=== PATIENT | male | born 1935 | race Caucasian/White ===

== ENCOUNTER 2017-08-31 16:09 | Emergency (ER) | payer MEDICARE, OTHER ==
[~2017-08-31] VITALS: Ht 189.2 cm; Wt 119.5 kg
[~2017-08-31 16:09] MED LIST: ASPI81 PO; CALA120T PO; CARB0.5D16 OU; CYAN1000P IM; GLYB1TAB51 PO; MICO TOP; OMEP20CA5 PO; SERT100 PO; SIMV20 PO; TERA2CAP3 PO; TRAZ150T2 PO
[2017-08-31 16:10] VITALS: BP 181/80; PULSE 76; RESP 18; TEMP 99.3; O2SAT 92
--- NOTE | 2017-08-31 17:02 | RADRPT ---
EXAM DATE/TIME: 08/31/2017 16:37 [place] COMPARISON: No previous studies available for comparison. INDICATIONS : Shortness of breath MEDICAL HISTORY : None. SURGICAL HISTORY : Cardiac stent ENCOUNTER: Initial ACUITY: 1 day PAIN SCORE: 0/10 LOCATION: Bilateral chest FINDINGS: The cardiac silhouette is enlarged in transverse diameter. The lungs are free of acute parenchymal op acity. No effusions are identified. There is bilateral pleural thickening laterally without calcifica tion. The background interstitium is prominent though this is likely chronic in nature. No pleural ef fusions are identified. 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 CONCLUSION: 1. 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 There is no evidence of pneumonia.8 Nnamdi Starr MD on August 31, 2017 at 16:59 Board Certified Radiologist. This report was verified electronically.
[2017-08-31 17:19] LABS: AUTOMATED NEUTROPHIL # 4.8 TH/MM3 (1.8-7.7); BASOPHIL % 0.4 % (0.0-2.0); EOSINOPHIL # 0.1 TH/MM3 (0-0.4); HEMATOCRIT 45.7 % (39.0-51.0); HEMOGLOBIN 15.6 GM/DL (13.0-17.0); LYMPH % 22.4 % (9.0-44.0); LYMPHOCYTE # 1.6 TH/MM3 (1.0-4.8); MEAN CELL VOLUME 90.8 FL (80.0-100.0); MEAN CORPUSCULAR HEMOGLOBIN 30.9 PG (27.0-34.0); MEAN CORPUSCULAR HGB CONC 34.1 % (32.0-36.0); MEAN PLATELET VOLUME 9.8 FL (7.0-11.0); MONO % 9.2 % (0.0-8.0); MONOCYTE # 0.7 TH/MM3 (0-0.9); PLATELET COUNT 141 TH/MM3 (150-450); RED BLOOD COUNT 5.04 MIL/MM3 (4.50-5.90); RED CELL DISTRIBUTION WIDTH 13.7 % (11.6-17.2); WHITE BLOOD COUNT 7.2 TH/MM3 (4.0-11.0)
[2017-08-31 17:31] LABS: INTERNATIONAL NORMALIZED RATIO 1.1 RATIO
--- NOTE | 2017-08-31 17:36 | PD ---
HPI Chief Complaint: Respiratory Distress Time Seen by Provider: 17:19 Travel History International Travel<30 days: No Contact w/Intl Traveler<30days: No Traveled to known affect area: No History of Present Illness HPI 82-year-old male with a history of COPD previously oxygen dependent presents to emergency department concerned about a low pulse ox that he found today. Patient states that he does have symptomatic COPD and has chronic shortness of breath with activity. States today it is no different than usual. Denies chest pain, abdominal pain or back pain.. States that he has had shortness of breath has been going on for approximately 2-3 months and he does follow pulmonology regularly with Dr. cooney. States that when he checked his pulse ox it was in the 70 to 80s range. Patient denies history of clots, recent travel, surgeries, or fractures. Patient was on oxygen approximately 13 years ago and was taken off because his O2 saturation improved. Patient denies cardiac history except for a stent that was placed 10-12 years ago. Denies history of congestive heart failure. PFSH Past Medical History Heart Rhythm Problems: No Cardiac Catheterization: No Cardiovascular Problems: Yes (hyperlipidemia, HTN, stent) High Cholesterol: Yes Congestive Heart Failure: No Coronary Artery Disease: Yes Diabetes: Yes Diminished Hearing: Yes Genitourinary: Yes (BPH) Hypertension: Yes Respiratory: Yes (COPD) Myocardial Infarction: No Past Surgical History Coronary Artery Bypass Graft: No Coronary Stent: Yes Social History Alcohol Use: No Tobacco Use: No Substance Use: No Allergies-Medications (Allergen,Severity, Reaction): Coded Allergies: penicillin G (Unverified Allergy, Severe, 04/12/17) REACTION NOT GIVEN Reported Meds & Prescriptions Reported Meds & Active Scripts Active Reported Sertraline (Sertraline HCl) 100 Mg Tab 100 Mg PO DAILY Gabapentin 100 Mg Cap 100 Mg PO HS Atorvastatin (Atorvastatin Calcium) 40 Mg Tab 40 Mg PO HS Testosterone Topical (Testosterone) 50 Mg/5 Gram (1 %) Gel 100 Mg TOPICAL DAILY Cetirizine (Cetirizine HCl) 10 Mg Chew 10 Mg CHEW DAILY [place]-3 Fish Oil/Vitamin (Fish Oil-Cholecalciferol) 1,000-1,000 Mg Cap 1 Cap PO DAILY Caltrate 600+D Plus Minerals (Calcium Carbonate-Vitamin D W/Minerals) 600-800 Mg -Unit Tab 1 Tab PO BID Glyburide 5 Mg Tab 5 Mg PO DAILY Take with meals at the same time each day Januvia (Sitagliptin Phosphate) 100 Mg Tab 100 Mg PO DAILY Trazodone (Trazodone HCl) 50 Mg Tab 50 Mg PO HS Terazosin (Terazosin HCl) 2 Mg Cap 2 Mg PO HS Verapamil ER 24 HR (Verapamil HCl) 240 Mg Tab 120 Mg PO HS Aspirin 81 Mg Chew 81 Mg CHEW DAILY Review of Systems Except as stated in HPI: all other systems reviewed are Neg Physical Exam Narrative GENERAL: A well-nourished in no apparent distress, resting comfortably in bed SKIN: Focused skin assessment warm/dry. HEAD: Atraumatic. Normocephalic. EYES: Pupils equal and round. No scleral icterus. No injection or drainage. ENT: No nasal bleeding or discharge. Mucous membranes pink and moist. NECK: Trachea midline. No JVD. No lymphadenopathy CARDIOVASCULAR: Regular rate and rhythm. No murmur appreciated. RESPIRATORY: No accessory muscle use. Clear to auscultation. Breath sounds equal bilaterally. Chest wall nontender to palpation GASTROINTESTINAL: Abdomen soft, non-tender, nondistended. Abdomen protuberant MUSCULOSKELETAL: No obvious deformities. No clubbing. No cyanosis. No edema. NEUROLOGICAL: Awake and alert. No obvious cranial nerve deficits. Motor grossly within normal limits. Normal speech. PSYCHIATRIC: Appropriate mood and affect; insight and judgment normal. Data Data Last Documented VS Vital Signs Date Time Temp Pulse Resp B/P (MAP) Pulse Ox O2 Delivery O2 Flow Rate FiO2 08/31/17 18:45 08/31/17 17:47 18 96 Nasal Cannula 3.00 08/31/17 16:10 99.3 76 Orders Orders Complete Blood Count With Diff (08/31/17 16:19) Basic Metabolic Panel (Bmp) (08/31/17 16:19) B-Type Natriuretic Peptide (08/31/17 16:19) Act Partial Throm Time (Ptt) (08/31/17 16:19) Prothrombin Time / Inr (Pt) (08/31/17 16:19) Magnesium (Mg) (08/31/17 16:19) Ckmb (Isoenzyme) Profile (08/31/17 16:19) Troponin I (08/31/17 16:19) Electrocardiogram (08/31/17 16:19) Chest, Pa & Lat (1/3/18 16:19) CKMB (08/31/17 16:31) CKMB% (08/31/17 16:31) Ed Discharge Order (08/31/17 18:32) Labs Laboratory Tests Test 08/31/17 16:31 White Blood Count 7.2 TH/MM3 Red Blood Count 5.04 MIL/MM3 Hemoglobin 15.6 GM/DL Hematocrit 45.7 % Mean Corpuscular Volume 90.8 FL Mean Corpuscular Hemoglobin 30.9 PG Mean Corpuscular Hemoglobin Concent 34.1 % Red Cell Distribution Width 13.7 % Platelet Count 141 TH/MM3 Mean Platelet Volume 9.8 FL Neutrophils (%) (Auto) 66.0 % Lymphocytes (%) (Auto) 22.4 % Monocytes (%) (Auto) 9.2 % Eosinophils (%) (Auto) 2.0 % Basophils (%) (Auto) 0.4 % Neutrophils # (Auto) 4.8 TH/MM3 Lymphocytes # (Auto) 1.6 TH/MM3 Monocytes # (Auto) 0.7 TH/MM3 Eosinophils # (Auto) 0.1 TH/MM3 Basophils # (Auto) 0.0 TH/MM3 CBC Comment DIFF FINAL Differential Comment Prothrombin Time 11.0 SEC Prothromb Time International Ratio 1.1 RATIO Activated Partial Thromboplast Time 27.6 SEC Blood Urea Nitrogen 21 MG/DL Creatinine 1.28 MG/DL Random Glucose 161 MG/DL Calcium Level 8.9 MG/DL Magnesium Level 2.0 MG/DL Sodium Level 138 MEQ/L Potassium Level 4.1 MEQ/L Chloride Level 105 MEQ/L Carbon Dioxide Level 25.7 MEQ/L Anion Gap 7 MEQ/L Estimat Glomerular Filtration Rate 54 ML/MIN Total Creatine Kinase 186 U/L Creatine Kinase MB 3.2 NG/ML Troponin I 0.03 NG/ML B-Type Natriuretic Peptide 34 PG/ML [facility] Medical Decision Making Medical Screen Exam Complete: Yes Emergency Medical Condition: Yes Differential Diagnosis COPD exacerbation, asthma exacerbation, hypoxia, upper respiratory infection, pneumonia Narrative Course 82-year-old male with a history of COPD previously oxygen dependent presents to emergency department concerned about a low pulse ox that he found today. Patient states that he does have symptomatic COPD and has chronic shortness of breath with activity. States today it is no different than usual. Denies chest pain, abdominal pain or back pain.. States that he has had shortness of breath has been going on for approximately 2-3 months and he does follow pulmonology regularly with Dr. cooney. States that when he checked his pulse ox it was in the 70 to 80s range. Patient denies history of clots, recent travel, surgeries, or fractures. Patient was on oxygen approximately 13 years ago and was taken off because his O2 saturation improved. Patient denies cardiac history except for a stent that was placed 10-12 years ago. Denies history of congestive heart failure. Vital signs stable. Laboratory Tests Test 08/31/17 16:31 White Blood Count 7.2 TH/MM3 Red Blood Count 5.04 MIL/MM3 Hemoglobin 15.6 GM/DL Hematocrit 45.7 % Mean Corpuscular Volume 90.8 FL Mean Corpuscular Hemoglobin 30.9 PG Mean Corpuscular Hemoglobin Concent 34.1 % Red Cell Distribution Width 13.7 % Platelet Count 141 TH/MM3 Mean Platelet Volume 9.8 FL Neutrophils (%) (Auto) 66.0 % Lymphocytes (%) (Auto) 22.4 % Monocytes (%) (Auto) 9.2 % Eosinophils (%) (Auto) 2.0 % Basophils (%) (Auto) 0.4 % Neutrophils # (Auto) 4.8 TH/MM3 Lymphocytes # (Auto) 1.6 TH/MM3 Monocytes # (Auto) 0.7 TH/MM3 Eosinophils # (Auto) 0.1 TH/MM3 Basophils # (Auto) 0.0 TH/MM3 CBC Comment DIFF FINAL Differential Comment Prothrombin Time 11.0 SEC Prothromb Time International Ratio 1.1 RATIO Activated Partial Thromboplast Time 27.6 SEC Blood Urea Nitrogen 21 MG/DL Creatinine 1.28 MG/DL Random Glucose 161 MG/DL Calcium Level 8.9 MG/DL Magnesium Level 2.0 MG/DL Sodium Level 138 MEQ/L Potassium Level 4.1 MEQ/L Chloride Level 105 MEQ/L Carbon Dioxide Level 25.7 MEQ/L Anion Gap 7 MEQ/L Estimat Glomerular Filtration Rate 54 ML/MIN Total Creatine Kinase 186 U/L Creatine Kinase MB 3.2 NG/ML Troponin I 0.03 NG/ML B-Type Natriuretic Peptide 34 PG/ML Patient will be discharged home. There is no evidence of cardiac or extraordinary luminary involvement. 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 Advised to follow-up with the primary care physician within one week. Return to the emergency for worsening or persistent symptoms. Again patient's concern was the oxygen saturation that he found at home with a home pulse ox. Patient has no other complaints today. Diagnosis Primary Impression: COPD (chronic obstructive pulmonary disease) Qualified Codes: J44.9 - Chronic obstructive pulmonary disease, unspecified Referrals: Auto Claim Representative Additional Instructions: Follow-up with Dr. Cooney within 1-2 days. I strongly advised to use your inhalers and other medications prescribed for her COPD. If you increased shortness of breath, chest pain, fatigue return to the emergency department. Follow-up with a primary care physician within one week. Disposition: 01 DISCHARGE HOME Condition: Stable Thelma York Aug 31, 2017 17:35
[2017-08-31 17:45] LABS: BICARBONATE 25.7 MEQ/L (21.0-32.0); BLOOD UREA NITROGEN 21 MG/DL (7-18); CALCIUM 8.9 MG/DL (8.5-10.1); CHLORIDE 105 MEQ/L (98-107); CREATININE 1.28 MG/DL (0.60-1.30); GLOMERULAR FILTRATION RATE 54 ML/MIN (>89); GLUCOSE,RANDOM 161 MG/DL (74-106); SODIUM (NA) 138 MEQ/L (136-145)
[2017-08-31 17:46] LABS: TROPONIN I 0.03 NG/ML (0.02-0.05)
[2017-08-31] MEDS ORDERED: ATOR40TA16 PO (18:00)
[2017-08-31] MEDS ORDERED: TRAZ50TA12 PO (18:00)
[2017-08-31] MEDS ORDERED: ASPI-516 CHEW (18:00)
[2017-08-31] MEDS ORDERED: SERT-129 PO (18:00)
[2017-08-31] MEDS ORDERED: OMEGCAP PO (18:00)
[2017-08-31] MEDS ORDERED: CETI10CH CHEW (18:00)
[2017-08-31] MEDS ORDERED: VERA1TAB17 PO (18:00)
[2017-08-31] MEDS ORDERED: SITA1TAB2 PO (18:00)
[2017-08-31] MEDS ORDERED: TERA2CAP3 PO (18:00)
[2017-08-31] MEDS ORDERED: CALC1TAB34 PO (18:00)
[2017-08-31] MEDS ORDERED: GABA100C4 PO (18:00)
[2017-08-31] MEDS ORDERED: GLYB5TAB3 PO (18:00)
[2017-08-31] MEDS ORDERED: TEST2.5G TOPICAL (18:00)
--- NOTE | 2017-09-02 23:45 | EKG ---
Date Performed: 08/31/2017 Time Performed: 16:25:29 PTAGE: 82 years EKG: Sinus rhythm WITH FIRST DEGREE AV BLOCK BORDERLINE LEFT AXIS DEVIATION MODERATE INTRAVENTRICULAR CONDUCTION DELAY NONSPECIFIC T-WAVE ABNORMALITY ABNORMAL ECG PREVIOUS TRACING : 01/19/2008 22.39 DOCTOR: Bernice Leyva Interpretating Date/Time 09/02/2017 23:44:13
== END 2017-08-31 18:49 | disposition home or self-care (01) ==
LOC: NEPC 16:09
DX: J44.9 Chronic obstructive pulmonary disease, unspecified (principal); E11.9 Type 2 diabetes mellitus without complications; E78.00 Pure hypercholesterolemia, unspecified; I10 Essential (primary) hypertension; I25.10 Atherosclerotic heart disease of native coronary artery without angina pectoris; N40.0 Benign prostatic hyperplasia without lower urinary tract symptoms; Z99.81 Dependence on supplemental oxygen; R94.31 Abnormal electrocardiogram [ECG] [EKG]; R06.02 Shortness of breath
CPT/HCPCS: 71046; 80048; 82550; 82552; 83735; 83880; 84484; 85025; 85610; 85730; 93005; 99285

== ENCOUNTER → 2017-09-27 | Outpatient (CLI) | payer MEDICARE, OTHER ==
[~2017-09-27] MED LIST changes: +ASPI-516 CHEW; -ASPI81 PO; +ATOR40TA16 PO; -CALA120T PO; +CALC1TAB34 PO; -CARB0.5D16 OU; +CETI10CH CHEW; -CYAN1000P IM; +GABA100C4 PO; -GLYB1TAB51 PO; +GLYB5TAB3 PO; -MICO TOP; +OMEGCAP PO; -OMEP20CA5 PO; +SERT-129 PO; -SERT100 PO; -SIMV20 PO; +SITA1TAB2 PO; +TEST2.5G TOPICAL; -TRAZ150T2 PO; +TRAZ50TA12 PO; +VERA1TAB17 PO
--- NOTE | 2017-09-30 08:43 | RSPPFT ---
DATE OF PROCEDURE: 09/27/17 COMMENTS: VOLUMES DYNAMIC: FVC and FEV1 moderately reduced. STATIC: FRC and TLC mildly reduced; RV normal. FLOWS: FEV1% mildly reduced; FEF 25-75 severely reduced. DIFFUSION: Normal. FLOW VOLUME LOOP: Pattern of variable intrathoracic airways obstruction. IMPRESSION: Moderately severe obstructive ventilatory defect with a mild reduction in TLC consistent with mild restriction. There is significant improvement post-bronchodilator. Diffusion capacity is normal.
== END ==
LOC: HRSP 10:31
PROVIDERS: ATTEND Internal Medicine
DX: R06.02 Shortness of breath (principal)
CPT/HCPCS: 36600; 82805; 94060; 94618; 94726; 94729